=== PATIENT | female | born 2000 | race Caucasian/White ===

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

== ENCOUNTER 2021-10-21 13:21 | Emergency (ER) | payer OTHER ==
[~2021-10-21] VITALS: Ht 172.7 cm; Wt 117.9 kg
[2021-10-21] MEDS ORDERED: IBUPROFEN 800 MG TAB PO ONE (14:30)
[2021-10-21 15:09] VITALS: BP 140/77
[2021-10-21] MEDS ORDERED: IBUP800T27 PO (15:10)
[2021-10-21] MEDS ORDERED: METH750T22 PO (15:10)
== END 2021-10-21 15:15 | disposition home or self-care (01) ==
LOC: ER 13:21 → EDBD 13:21 → ER 15:15
DX: S16.1XXA Strain of muscle, fascia and tendon at neck level, initial encounter (principal); V43.52XA Car driver injured in collision with other type car in traffic accident, initial encounter; Y93.89 Activity, other specified; Y92.410 Unspecified street and highway as the place of occurrence of the external cause; Y99.8 Other external cause status
CPT/HCPCS: 72040